=== PATIENT | female | born 1960 | race African-American/Black ===

== ENCOUNTER 2016-11-22 10:08 | Inpatient (IN) | payer OTHER ==
[~2016-11-22] VITALS: Ht 175.3 cm; Wt 117.9 kg
[2016-11-22 09:00] VITALS: Ht 175.3 cm; Wt 117.9 kg
[2016-11-22 10:00] VITALS: BP 125/65; PULSE 88; RESP 18
[2016-11-22] MEDS ORDERED: HYDROmorphONE 1 MG/ML SYG IV PRN ×2 (10:49→11:00)
[2016-11-22] MEDS ORDERED: BISACODYL 10 MG SUPP PR PRN (11:00)
[2016-11-22] MEDS ORDERED: DIPHENHYDRAMINE 25 MG CAP PO PRN (11:00)
[2016-11-22] MEDS: ASPIRIN 325 MG TAB PO SCH ×2 (11:00→19:54)
[2016-11-22] MEDS ORDERED: ACETAMINOPHEN 325 MG TAB PO PRN (11:00)
[2016-11-22] MEDS ORDERED: ONDANSETRON 4 MG INJ IV PRN (11:00)
[2016-11-22] MEDS: CELECOXIB 200 MG CAP PO SCH ×2 (11:00→19:54)
[2016-11-22] MEDS: FLUTICASONE 0.05% 16 GM NAS SPRAY NASAL SCH ×2 (11:30→19:54)
[2016-11-22] MEDS ORDERED: HYDROmorphONE 1 MG/ML SYG IM STA (11:41)
[2016-11-22] MEDS ORDERED: HYDROmorphONE 1 MG/ML SYG IV STA (11:43)
[2016-11-22] MEDS: HYDROmorphONE 1 MG/ML SYG IV PRN ×3 (15:24→21:17)
--- NOTE | 2016-11-22 17:21 | HP ---
DATE OF ADMISSION: 11/22/2016 PHYSICAL MEDICINE AND REHABILITATION HISTORY AND PHYSICAL/PHYSICIAN POST ADMISSION ASSESSMENT DATE OF VISIT: 11/22/2016. REHABILITATION IMPAIRMENT GROUP: Status post left unilateral knee replacement. CHIEF COMPLAINT: Impaired mobility, left knee and left ankle pain. HISTORY OF PRESENT ILLNESS: This is a 55-year-old obese female with a past medical history significant for a work related injury on her left knee in November 2005 as well as left knee osteoarthritis with left knee pain who failed conservative treatment and decided to proceed with elective total knee arthroplasty. The patient went to the OR on 11/16/2016 and underwent a left total knee replacement by Dr. Carey. No reported intraoperative complications. Postoperatively, she is recommended a knee immobilizer. Postoperative course complicated by anemia as well as postoperative pain. The patient did work with physical and occupational therapies, and currently the patient is requiring moderate assistance for bed mobility and transfers and gait 20 feet with a walker and moderate assistance for most of her ADLs. Due to her overall significant functional decline from baseline independent status and ongoing medical comorbidities, she was thought to benefit from acute inpatient rehabilitation. PAST MEDICAL AND PAST SURGICAL HISTORY: As stated in history of present illness. Also history of GERD and patient reports history of left ankle injury for which she had prior surgery. FAMILY HISTORY: Reports noncontributory. SOCIAL HISTORY: Denies current toxic habits. The patient lives with her family in an apartment. Reports 19 stairs to enter. The patient reports she has other options of where she may stay on discharge. She reports previously being independent with all functional mobility and self-care ADLs. Used a cane for ambulation. MEDICATIONS ON ADMISSION: 1. Milk of magnesia as needed. 2. Ambien as needed. 3. Toradol 30 mg IV q.6 hours as needed. 4. Dilaudid 1 mg IV q.3 hours p.r.n. 5. Flonase twice daily. 6. Tylenol as needed. 7. Aspirin 325 mg oral twice daily. 8. Dulcolax suppository as needed. 9. Celebrex 200 mg oral twice daily. 10. Benadryl as needed. 11. Zofran as needed. ALLERGIES: 1. AMOXICILLIN. 2. CLINDAMYCIN. 3. ERYTHROMYCIN BASE. 4. HYDROCODONE. THE PATIENT IS UNSURE OF WHAT THE EXACT ALLERGY IS BUT DOES REPORT WITH ONE OF THE MEDICATIONS SWELLING INCLUDING THROAT SWELLING. LABORATORIES AND IMAGING: Admission labs are pending for tomorrow. Prior labs from outside hospital reviewed in patient's chart. REVIEW OF SYSTEMS: CONSTITUTIONAL: The patient denies any fevers or chills. EYES: Denies pain or discharge. No redness. EARS, NOSE AND THROAT: Denies difficulty swallowing. No changes in hearing. RESPIRATORY: Denies shortness of breath, no cough. CARDIOVASCULAR: Denies chest pain, no palpitations. GENITOURINARY: Denies dysuria. No hematuria. GASTROINTESTINAL: Denies abdominal pain, no nausea, no vomiting. Reports last bowel movement earlier today. NEUROLOGICAL: Denies any new paresthesias. No new focal weakness. MUSCULOSKELETAL: Reports moderate to severe pain currently in the left knee as well as in the left ankle. SKIN: Reports some itching around the left knee surgical site. PSYCHIATRIC: Denies history of anxiety or depression. REVIEW OF SYSTEMS: Otherwise negative. PHYSICAL EXAMINATION: GENERAL: The patient is a well-nourished, well-developed, obese, awake, alert, in no acute distress. HEENT: Normocephalic, atraumatic. Mucous membranes noted. Sclera anicteric. NECK: Supple, nontender. RESPIRATORY: Symmetrical air entry bilaterally. No wheezing. No accessory muscle use. CARDIOVASCULAR: Regular rate and rhythm; audible S1, S2. ABDOMEN: Soft, nontender, bowel sounds present. No masses palpated. EXTREMITIES: There is some edema in the left lower extremity mostly surrounding the left knee. No cyanosis. SKIN: The left knee surgical site appears clean and intact. No active drainage is noted. PSYCHIATRIC: Oriented x3. Affect and mood appear appropriate. MUSCULOSKELETAL AND NEUROLOGIC: Oriented x3. Speech fluent. Good plus strength overall in the bilateral upper extremities, antigravity strength in the right lower extremity as well as wiggles all toes on the left. The patient does have some pain with range of motion in the left ankle with tenderness to palpation throughout the medial side of her ankle, no skin changes. Active range of motion in the upper extremities otherwise within functional limits. Sensation reports intact to light touch. IMPRESSION: 1. Status post left total knee replacement for left knee osteoarthritis and work related injury with knee pain failing conservative treatment. 2. Impaired mobility, gait and balance. 3. Impaired self-care activities of daily living. 4. Acute postoperative pain. 5. Anemia. 6. Left ankle pain with history of prior left ankle injury requiring surgery. 7. Obesity 8. GERD PLAN: 1. The patient will be admitted for inpatient comprehensive interdisciplinary rehabilitation to address impairments and medical conditions listed above while assessing equipment needs and compensatory strategies with coordinated interdisciplinary services that will include physical and occupational therapies and close monitoring and treatment with 24-hour rehabilitation nursing. This interdisciplinary program will be performed under the direction of inspector brake lining. The patient is anticipated to be able to tolerate 3 hours daily of therapies for at least 5 of the 7 days per week. 2. Start physical therapy for bed mobility, transfers, balance training, gait training with assistive devices. 3. Begin occupational therapies for activities of daily living, functional transfers, adaptive equipment evaluation, and patient education. 4. Rehabilitation nursing to provide the patient education regarding current medications as they relate to medical illness. Monitor pain levels. Monitor bowel and bladder programs and administer such programs and reinforce those activities with therapies. 5. Dr. Boyce and associates to follow for management of medical comorbidities. 6. For management of anemia, continue to closely monitor hemoglobin and hematocrit. WIll defer further workup per internal medicine. 7. For her history of left total knee replacement, we will obtain further clarification from orthopedic surgery in regard to her knee immobilizer as current instructions are unclear and as well as get instructions regarding dressing changes. Nursing reports that dressing was loose on admission and had to be changed. 8. For left ankle pain with prior history of surgery, we will obtain x-ray of the left ankle. 9. For the acute postoperative pain, THE PATIENT HAS MULTIPLE ALLERGIES INCLUDING TO HYDROCODONE. We will closely monitor her pain levels as she mobilizes further with therapies and adjust further as needed. 10. For DVT prophylaxis she is on aspirin. REHABILITATION GOALS: Improve bed mobility, transfers, gait and self-care ADLs to at least supervision level. ANTICIPATED DISPOSITION: Home with family. ESTIMATED LENGTH OF STAY: Approximately 10 to 14 days. Her case will be discussed at the weekly interdisciplinary conference. PROGNOSIS: At the current time, this inpatient hospital rehabilitation stay is medically necessary to achieve important health and functional goals. The patient requires frequent physician visits, 24-hour rehabilitation nursing and a coordinated intensive rehabilitation program as described above to address complex medical, nursing and rehabilitation needs. The patient has a good prognosis for benefiting from this program and returning to home and community. REHABILITATION PHYSICIAN POST-ADMISSION ASSESSMENT REVIEW: I have had the opportunity to examine the patient within 24 hours of admission and have reviewed the preadmission assessment and find it consistent with my examination and evaluation of the patient. I confirm that this patient is appropriate for admission and treatment in this inpatient rehabilitation hospital, needs intense interdisciplinary rehabilitation and is expected to achieve meaningful goals within a reasonable period of time that are consistent with the planned discharge disposition as noted above. Dictated By: RAHEL TENORIO MD, RA/ALESSANDRO Conf#: [id number] DID#: [id number] MTDD
--- NOTE | 2016-11-22 17:44 | RADRPT ---
PROCEDURE: XR Left Ankle. CLINICAL INDICATION: Left ankle pain. TECHNIQUE: 2 views. Frontal and lateral. COMPARISON: None. FINDINGS: There is no fracture or dislocation. There is diffuse soft tissue swelling. Articular surfaces are intact. There is a small plantar calcaneal spur. There is no lytic or blastic lesion. There is no radiopaque foreign body. IMPRESSION: 1. Diffuse soft tissue swelling. 2. Small plantar calcaneal spur. 3. Otherwise normal images of the left ankle. RPTAT: QQ .Bryn Lew MD, MD Date Time Electronically viewed and signed by .Bryn Lew MD, MD on 11/22/2016 17:44 .R/
[2016-11-22 19:19] LABS: ADD UMIC YES; URINE BILIRUBIN (Dip) 1+ (NEGATIVE); URINE BLOOD (Dip) NEGATIVE (NEGATIVE); URINE COLOR YELLOW (YELLOW); URINE GLUCOSE (Dip) NEGATIVE (NEGATIVE); URINE KETONES (Dip) NEGATIVE (NEGATIVE); URINE LEUKOCYTE ESTERASE (Dip) 1+ (NEGATIVE); URINE NITRITE (Dip) NEGATIVE (NEGATIVE); URINE TOTAL PROTEIN (Dip) TRACE (NEGATIVE); URINE UROBILINOGEN (Dip) >8.0 E.U./dL (0.1-1.0)
[2016-11-22 19:29] LABS: BACTERIA,URINE MANY; URINE RBCS 0-2 /HPF (0)
[2016-11-22 19:30] LABS: ICTOTEST NEGATIVE (NEGATIVE)
[2016-11-22] MEDS: KETOROLAC 30 MG INJ IV PRN (19:54)
[2016-11-22 20:00] VITALS: BP 127/62; RESP 18
[2016-11-22 20:43] VITALS: BP 113/68; RESP 18
[2016-11-22] MEDS ORDERED: MAGNESIUM HYDROXIDE 30ML CUP PO PRN (21:00)
[2016-11-22] MEDS: ZOLPIDEM 5 MG TAB PO PRN (21:17)
[2016-11-23] MEDS: HYDROmorphONE 1 MG/ML SYG IV PRN ×6 (03:19→20:48)
[2016-11-23 07:05] LABS: ADD SCAN DIFF NO
[2016-11-23 07:11] LABS: BASOPHIL # 0.1 10^3/ul (0.0-0.1); BASOPHILS % 0.6 % (0.0-2.0); EOSINOPHILS # 0.5 10^3/ul (0.0-0.5); EOSINOPHILS % 5.5 % (0.0-7.0); HEMATOCRIT 27.8 % (37.0-47.0); HEMOGLOBIN 8.6 g/dl (12.0-16.0); LYMPHOCYTES # 2.1 10^3/ul (0.8-2.9); LYMPHOCYTES % 21.6 % (15.0-51.0); MEAN CORPUSCULAR HGB CONC 30.9 g/dl (32.0-37.0); MEAN PLATELET VOLUME 11.1 fl (7.4-10.4); MONOCYTE # 0.9 10^3/ul (0.3-0.9); MONOCYTES % 9.6 % (0.0-11.0); NEUTROPHIL # 5.9 10^3/ul (1.6-7.5); NEUTROPHILS % 61.6 % (39.0-77.0); PLATELET COUNT 444 10^3/UL (140-415); RED BLOOD COUNT 3.31 10^6/ul (4.20-5.40); RED CELL DISTRIBUTION WIDTH 15.3 % (11.5-14.5); WHITE BLOOD COUNT 9.6 10^3/ul (4.8-10.8)
[2016-11-23 07:31] VITALS: BP 117/73; RESP 18
[2016-11-23 07:38] LABS: ALBUMIN 3.4 g/dl (3.3-4.9); ALBUMIN/GLOBULIN RATIO 0.89; BILIRUBIN,INDIRECT 1.2 mg/dl (0-1.1); BILIRUBIN,TOTAL 1.2 mg/dl (0.2-1.3); CALCIUM 8.9 mg/dl (8.4-10.2); CREATININE 0.75 mg/dl (0.44-1.00); POTASSIUM 5.1 mmol/L (3.5-5.1); TOTAL PROTEIN 7.2 g/dl (6.1-8.1)
[2016-11-23] MEDS: ASPIRIN 325 MG TAB PO SCH ×2 (09:12→20:45)
[2016-11-23] MEDS: FLUTICASONE 0.05% 16 GM NAS SPRAY NASAL SCH ×2 (09:12→21:01)
[2016-11-23] MEDS: CELECOXIB 200 MG CAP PO SCH ×2 (09:12→20:45)
--- NOTE | 2016-11-23 10:53 | PN ---
Date/Time of Note Date/Time of Note DATE: 11/23/16 TIME: 10:41 Assessment/Plan VTE Prophylaxis VTE Prophylaxis Intervention: other (ASA) Lines/Catheters IV Catheter Type (from Nrsg): Saline Lock Assessment/Plan Assessment/Plan 1. Status post left total knee replacement with history of left knee osteoarthritis and work related injury, with impaired mobility/gait/ADLs. Continue PT/OT. Nursing spoke with surgeon and reports was given orders to not remove surgical dressing till follow up with the surgeon and instructed to have knee immobilizer on while in bed, and off while working with therapies and ambulating. Currently min assist for lower body dressing and toileting. 2. Acute postoperative pain. Pain not optimally controlled, pain regimen adjusted. Continue to closely monitor. 3. Anemia. Continue to monitor hemoglobin/hematocrit. Internal medicine medically managing. 4. Elevated LFTs. Monitor trend. Internal medicine following. 5. Obesity. 6. Left ankle pain with history of prior left ankle injury and left ankle surgery. XR left ankle showed no acute fracture or dislocation. Continue pain regimen. Subjective 24 Hr Interval Summary Free Text/Dictation Rehab progress note Subjective: Reports moderate pain currently in left lower extremity. ROS: Denies chest pain, no shortness of breath, no abdominal pain, no nausea, no vomiting, no chills. Exam/Review of Systems Vital Signs Vitals Vital Signs Date Time Temp Pulse Resp B/P Pulse Ox O2 Delivery O2 Flow Rate FiO2 11/23/16 07:31 98.3 97 18 117/73 95 11/22/16 10:00 Room Air Intake and Output 11/22/16 11/22/16 11/23/16 15:00 23:00 07:00 Intake Total 420 ml Balance 420 ml Exam General: Awake, alert, no acute distress CV: Regular rate, s1s2 Lungs: Clear to auscultation, no wheezing Abdomen soft, nontender, bowel sounds present Extremities: No cyanosis. LLE in knee immobilizer with dressing and MAYRA wrapping in place. Neuro: No new focal changes. Follows simple commands. Results Result Diagram: 11/23/16 0625 11/23/16 0625 Results 24 hrs Laboratory Tests Test 11/22/16 18:30 11/23/16 06:25 Urine Color YELLOW Urine Clarity CLOUDY Urine pH 6.0 Urine Specific [place] 1.025 Urine Ketones NEGATIVE Urine Nitrite NEGATIVE Urine Bilirubin 1+ H Urine Ictotest NEGATIVE Urine Urobilinogen >8.0 E.U./dL H Urine Leukocyte Esterase 1+ H Urine Microscopic RBC 0-2 Urine Microscopic WBC 5-10 Urine Epithelial Cells FEW Urine Amorphous Urates MANY Urine Bacteria MANY Urine Hemoglobin NEGATIVE Urine Glucose NEGATIVE Urine Total Protein TRACE White Blood Count 9.6 Red Blood Count 3.31 L Hemoglobin 8.6 L Hematocrit 27.8 L Mean Corpuscular Volume 84.0 Mean Corpuscular Hemoglobin 26.0 L Mean Corpuscular Hemoglobin Concent 30.9 L Red Cell Distribution Width 15.3 H Platelet Count 444 H Mean Platelet Volume 11.1 H Neutrophils % 61.6 Lymphocytes % 21.6 Monocytes % 9.6 Eosinophils % 5.5 Basophils % 0.6 Nucleated Red Blood Cells % 0.0 Neutrophils # 5.9 Lymphocytes # 2.1 Monocytes # 0.9 Eosinophils # 0.5 Basophils # 0.1 Nucleated Red Blood Cells # 0.0 Sodium Level 140 Potassium Level 5.1 Chloride Level 106 Carbon Dioxide Level 27 Anion Gap 12 Blood Urea Nitrogen 22 H Creatinine 0.75 Glucose Level 91 Calcium Level 8.9 Total Bilirubin 1.2 Direct Bilirubin 0.00 Indirect Bilirubin 1.2 H Aspartate Amino Transf (AST/SGOT) 54 H Alanine Aminotransferase (ALT/SGPT) 73 H Alkaline Phosphatase 225 H Total Protein 7.2 Albumin 3.4 Globulin 3.80 H Albumin/Globulin Ratio 0.89 Medications Medications Current Medications Acetaminophen (Tylenol Tab) 650 mg Q4H PRN PO MILD PAIN (1-5),FEVER>101; Start 11/22/16 at 11:00 Aspirin (Aspirin) 325 mg BID PO Last administered on 11/23/16 09:12; Admin Dose 325 MG; Start 11/22/16 at 11:00 Bisacodyl (Dulcolax Supp) 10 mg HS PRN [place] CONSTIPATION; Start 11/22/16 at 11:00 Celecoxib (Celebrex) 200 mg BID PO Last administered on 11/23/16 09:12; Admin Dose 200 MG; Start 11/22/16 at 11:00 Diphenhydramine HCl (Benadryl) 25 mg Q6H PRN PO ITCHINESS; Start 11/22/16 at 11: 00 Fluticasone Propionate (Flonase 0.05% Nasal) 1 SPRAY to each nostril BID NASAL Last administered on 11/23/16 09:12; Admin Dose 1 SPRAY; Start 11/22/16 at 11:30 Magnesium Hydroxide (Milk Of Mag) 30 ml HS PRN PO CONSTIPATION; Start 11/22/16 at 21:00 Ondansetron HCl (Zofran Inj) 4 mg Q4H PRN IV NAUSEA AND/OR VOMITING; Start 11/22 at 11:00 Zolpidem Tartrate (Ambien) 5 mg HS PRN PO SLEEP Last administered on 11/22/16 21:17; Admin Dose 5 MG; Start 11/22/16 at 21:00 Hydromorphone HCl (Dilaudid) 1 mg Q3H PRN IV BREAKTHROUGH PAIN Last administered on 11/23/16 09:46; Admin Dose 1 MG; Start 11/22/16 at 12:00 Ketorolac Tromethamine (Toradol) 30 mg Q6H PRN IV PAIN Last administered on 11/22 19:54; Admin Dose 30 MG; Start 11/22/16 at 14:30; Stop 11/25/16 at 14:29 Hydromorphone HCl (Dilaudid) 4 mg Q6H PRN PO PAIN; Start 11/23/16 at 11:00; Status RAHEL SIMMS Nov 23, 2016 10:53
--- NOTE | 2016-11-23 11:57 | PN ---
Date/Time of Note Date/Time of Note DATE: 11/23/16 TIME: 11:53 Assessment/Plan VTE Prophylaxis VTE Prophylaxis Intervention: other Lines/Catheters IV Catheter Type (from Nrsg): Saline Lock Assessment/Plan Assessment/Plan 1. Status post left total knee replacement for left knee osteoarthritis and work related injury. will conitnue with rehab, dvt prophylaxis, pain management (will add remeron) 2. Impaired mobility, gait and balance. 3. Impaired self-care activities of daily living. 4. Acute postoperative pain. 5. Anemia. will check iron panel 6. Left ankle pain with history of prior left ankle surgery. 7. elevated transaminases: will repeat in am Subjective 24 Hr Interval Summary Free Text/Dictation all noted complaining of pain surgical site is clean and dry no nausea, vomiting, rash, hematuria REVIEW OF SYSTEMS: CONSTITUTIONAL: The patient denies any fevers or chills. EYES: Denies pain or discharge. No redness. EARS, NOSE AND THROAT: Denies difficulty swallowing. No changes in hearing. RESPIRATORY: Denies shortness of breath, no cough. CARDIOVASCULAR: Denies chest pain, no palpitations. GENITOURINARY: Denies dysuria. No hematuria. GASTROINTESTINAL: Denies abdominal pain, no nausea, no vomiting. Reports last bowel movement earlier today. NEUROLOGICAL: Denies any new paresthesias. No new focal weakness. MUSCULOSKELETAL: Reports moderate to severe pain currently in the left knee as well as in the left ankle. SKIN: Reports some itching around the left knee surgical site. PSYCHIATRIC: Denies history of anxiety or depression. REVIEW OF SYSTEMS: Otherwise negative. PHYSICAL EXAMINATION: GENERAL: The patient is a well-nourished, well-developed, obese, awake, alert, in no acute distress. HEENT: Normocephalic, atraumatic. Mucous membranes noted. NECK: Supple, nontender. RESPIRATORY: Symmetrical air entry bilaterally. No wheezing. CARDIOVASCULAR: Regular rate and rhythm; audible S1, S2. ABDOMEN: Soft, nontender, bowel sounds present. EXTREMITIES: There is some edema in the left lower extremity mostly surrounding the left knee. No cyanosis. SKIN: The left knee surgical site appears clean and intact. No active drainage is noted. PSYCHIATRIC: Affect and mood appear appropriate. Exam/Review of Systems Vital Signs Vitals Vital Signs Date Time Temp Pulse Resp B/P Pulse Ox O2 Delivery O2 Flow Rate FiO2 4/7/17 07:31 98.3 97 18 117/73 95 11/22/16 10:00 Room Air Intake and Output 11/22/16 11/22/16 11/23/16 15:00 23:00 07:00 Intake Total 420 ml Balance 420 ml Results Result Diagram: 11/23/16 0625 11/23/16 0625 Results 24 hrs Laboratory Tests Test 11/22/16 18:30 11/23/16 06:25 Urine Color YELLOW Urine Clarity CLOUDY Urine pH 6.0 Urine Specific [place] 1.025 Urine Ketones NEGATIVE Urine Nitrite NEGATIVE Urine Bilirubin 1+ H Urine Ictotest NEGATIVE Urine Urobilinogen >8.0 E.U./dL H Urine Leukocyte Esterase 1+ H Urine Microscopic RBC 0-2 Urine Microscopic WBC 5-10 Urine Epithelial Cells FEW Urine Amorphous Urates MANY Urine Bacteria MANY Urine Hemoglobin NEGATIVE Urine Glucose NEGATIVE Urine Total Protein TRACE White Blood Count 9.6 Red Blood Count 3.31 L Hemoglobin 8.6 L Hematocrit 27.8 L Mean Corpuscular Volume 84.0 Mean Corpuscular Hemoglobin 26.0 L Mean Corpuscular Hemoglobin Concent 30.9 L Red Cell Distribution Width 15.3 H Platelet Count 444 H Mean Platelet Volume 11.1 H Neutrophils % 61.6 Lymphocytes % 21.6 Monocytes % 9.6 Eosinophils % 5.5 Basophils % 0.6 Nucleated Red Blood Cells % 0.0 Neutrophils # 5.9 Lymphocytes # 2.1 Monocytes # 0.9 Eosinophils # 0.5 Basophils # 0.1 Nucleated Red Blood Cells # 0.0 Sodium Level 140 Potassium Level 5.1 Chloride Level 106 Carbon Dioxide Level 27 Anion Gap 12 Blood Urea Nitrogen 22 H Creatinine 0.75 Glucose Level 91 Calcium Level 8.9 Total Bilirubin 1.2 Direct Bilirubin 0.00 Indirect Bilirubin 1.2 H Aspartate Amino Transf (AST/SGOT) 54 H Alanine Aminotransferase (ALT/SGPT) 73 H Alkaline Phosphatase 225 H Total Protein 7.2 Albumin 3.4 Globulin 3.80 H Albumin/Globulin Ratio 0.89 Medications Medications Current Medications Acetaminophen (Tylenol Tab) 650 mg Q4H PRN PO MILD PAIN (1-5),FEVER>101; Start 11/22/16 at 11:00 Aspirin (Aspirin) 325 mg BID PO Last administered on 11/23/16t 09:12; Admin Dose 325 MG; Start 11/22/16 at 11:00 Bisacodyl (Dulcolax Supp) 10 mg HS PRN [place] CONSTIPATION; Start 11/22/16 at 11:00 Celecoxib (Celebrex) 200 mg BID PO Last administered on 11/23/16 09:12; Admin Dose 200 MG; Start 11/22/16 at 11:00 Diphenhydramine HCl (Benadryl) 25 mg Q6H PRN PO ITCHINESS; Start 11/22/16 at 11: 00 Fluticasone Propionate (Flonase 0.05% Nasal) 1 SPRAY to each nostril BID NASAL Last administered on 11/23/16 09:12; Admin Dose 1 SPRAY; Start 11/22/16 at 11:30 Magnesium Hydroxide (Milk Of Mag) 30 ml HS PRN PO CONSTIPATION; Start 11/22/16 at 21:00 Ondansetron HCl (Zofran Inj) 4 mg Q4H PRN IV NAUSEA AND/OR VOMITING; Start 11/22 at 11:00 Zolpidem Tartrate (Ambien) 5 mg HS PRN PO SLEEP Last administered on 11/22/16 21:17; Admin Dose 5 MG; Start 11/22/16 at 21:00 Hydromorphone HCl (Dilaudid) 1 mg Q3H PRN IV BREAKTHROUGH PAIN Last administered on 11/23/16 09:46; Admin Dose 1 MG; Start 11/22/16 at 12:00 Ketorolac Tromethamine (Toradol) 30 mg Q6H PRN IV PAIN Last administered on 11/22 19:54; Admin Dose 30 MG; Start 11/22/16 at 14:30; Stop 11/25/16 at 14:29 Hydromorphone HCl (Dilaudid) 4 mg Q6H PRN PO PAIN; Start 11/23/16 at 11:00 LEANNE JESSICA DO Nov 23, 2016 11:57
[2016-11-23] MEDS: KETOROLAC 30 MG INJ IV PRN (12:13)
[2016-11-23] MEDS: HYDROmorphONE 4 MG TAB PO PRN (18:17)
[2016-11-23] MEDS: ZOLPIDEM 5 MG TAB PO PRN (20:48)
[2016-11-23] MEDS: MIRTAZAPINE 15 MG TAB GTB SCH (21:01)
[2016-11-24] MEDS: HYDROmorphONE 1 MG/ML SYG IV PRN ×2 (06:17→20:25)
[2016-11-24 07:36] LABS: ADD SCAN DIFF NO
[2016-11-24 07:46] LABS: BASOPHIL # 0.1 10^3/ul (0.0-0.1); BASOPHILS % 0.7 % (0.0-2.0); EOSINOPHILS # 0.6 10^3/ul (0.0-0.5); EOSINOPHILS % 7.3 % (0.0-7.0); HEMATOCRIT 25.8 % (37.0-47.0); HEMOGLOBIN 8.4 g/dl (12.0-16.0); LYMPHOCYTES # 1.8 10^3/ul (0.8-2.9); LYMPHOCYTES % 21.6 % (15.0-51.0); MEAN CORPUSCULAR HEMOGLOBIN 28.1 pg (29.0-33.0); MEAN CORPUSCULAR HGB CONC 32.6 g/dl (32.0-37.0); MEAN CORPUSCULAR VOLUME 86.3 fl (82.0-101.0); MEAN PLATELET VOLUME 11.5 fl (7.4-10.4); MONOCYTE # 0.8 10^3/ul (0.3-0.9); NEUTROPHIL # 4.8 10^3/ul (1.6-7.5); NEUTROPHILS % 59.4 % (39.0-77.0); PLATELET COUNT 472 10^3/UL (140-415); RED BLOOD COUNT 2.99 10^6/ul (4.20-5.40); RED CELL DISTRIBUTION WIDTH 15.9 % (11.5-14.5); WHITE BLOOD COUNT 8.1 10^3/ul (4.8-10.8)
[2016-11-24 07:55] LABS: BILIRUBIN,INDIRECT 1.1 mg/dl (0-1.1); BILIRUBIN,TOTAL 1.1 mg/dl (0.2-1.3); TOTAL PROTEIN 6.5 g/dl (6.1-8.1)
[2016-11-24 07:57] LABS: IRON 59 ug/dl (35-150)
[2016-11-24 08:00] VITALS: BP 164/78; PULSE 98; RESP 18
[2016-11-24 08:00] LABS: CALCIUM 8.5 mg/dl (8.4-10.2); CREATININE 0.67 mg/dl (0.44-1.00); PHOSPHORUS 4.1 mg/dl (2.5-4.9); POTASSIUM 4.4 mmol/L (3.5-5.1)
[2016-11-24 08:06] LABS: TOTAL IRON BINDING CAPACITY 293 ug/dl (241-421)
[2016-11-24] MEDS: ASPIRIN 325 MG TAB PO SCH ×2 (08:19→20:25)
[2016-11-24] MEDS: FLUTICASONE 0.05% 16 GM NAS SPRAY NASAL SCH ×2 (08:19→20:23)
[2016-11-24] MEDS: CELECOXIB 200 MG CAP PO SCH ×2 (08:19→20:25)
[2016-11-24] MEDS: HYDROmorphONE 4 MG TAB PO PRN ×2 (08:27→15:03)
--- NOTE | 2016-11-24 09:02 | CONS ---
Date/Time of Note Date/Time of Note DATE: 11/24/16 TIME: 08:59 Consult Date/Type/Reason Admit Date/Time Nov 22, 2016 at 10:08 Initial Consult Date Subjective Above noted. poc reviewed with dr. ugarte complaining of pain surgical site is clean and dry no nausea, vomiting, rash, hematuria REVIEW OF SYSTEMS: CONSTITUTIONAL: The patient denies any fevers or chills. EYES: Denies pain or discharge. No redness. EARS, NOSE AND THROAT: Denies difficulty swallowing. No changes in hearing. RESPIRATORY: Denies shortness of breath, no cough. CARDIOVASCULAR: Denies chest pain, no palpitations. GENITOURINARY: Denies dysuria. No hematuria. GASTROINTESTINAL: Denies abdominal pain, no nausea, no vomiting. Reports last bowel movement earlier today. NEUROLOGICAL: Denies any new paresthesias. No new focal weakness. MUSCULOSKELETAL: Reports moderate to severe pain currently in the left knee as well as in the left ankle. SKIN: Reports some itching around the left knee surgical site. PSYCHIATRIC: Denies history of anxiety or depression. REVIEW OF SYSTEMS: Otherwise negative. PHYSICAL EXAMINATION: GENERAL: The patient is a well-nourished, well-developed, obese, awake, alert, in no acute distress. HEENT: Normocephalic, atraumatic. Mucous membranes noted. NECK: Supple, nontender. RESPIRATORY: Symmetrical air entry bilaterally. No wheezing. CARDIOVASCULAR: Regular rate and rhythm; audible S1, S2. ABDOMEN: Soft, nontender, bowel sounds present. EXTREMITIES: There is some edema in the left lower extremity mostly surrounding the left knee. No cyanosis. SKIN: The left knee surgical site appears clean and intact. No active drainage is noted. PSYCHIATRIC: Affect and mood appear appropriate. Objective Vital Signs Date Time Temp Pulse Resp B/P Pulse Ox O2 Delivery O2 Flow Rate FiO2 11/23/16 07:31 98.3 97 18 117/73 95 11/22/16 10:00 Room Air Intake and Output 11/23/16 11/23/16 11/24/16 15:00 23:00 07:00 Intake Total 1200 ml 600 ml 450 ml Output Total 400 ml 300 ml Balance 800 ml 600 ml 150 ml Results/Medications Result Diagram: 11/24/16 0555 11/24/16 0555 Results 24 hrs Laboratory Tests Test 11/24/16 05:55 11/24/16 06:55 White Blood Count 8.1 Red Blood Count 2.99 L Hemoglobin 8.4 L Hematocrit 25.8 L Mean Corpuscular Volume 86.3 Mean Corpuscular Hemoglobin 28.1 L Mean Corpuscular Hemoglobin Concent 32.6 Red Cell Distribution Width 15.9 H Platelet Count 472 H Mean Platelet Volume 11.5 H Neutrophils % 59.4 Lymphocytes % 21.6 Monocytes % 10.0 Eosinophils % 7.3 H Basophils % 0.7 Nucleated Red Blood Cells % 0.0 Neutrophils # 4.8 Lymphocytes # 1.8 Monocytes # 0.8 Eosinophils # 0.6 H Basophils # 0.1 Nucleated Red Blood Cells # 0.0 Sodium Level 139 Potassium Level 4.4 Chloride Level 108 Carbon Dioxide Level 27 Anion Gap 8 Blood Urea Nitrogen 21 H Creatinine 0.67 Glucose Level 91 Calcium Level 8.5 Phosphorus Level 4.1 Magnesium Level 2.0 Total Bilirubin 1.1 Direct Bilirubin 0.00 Indirect Bilirubin 1.1 Aspartate Amino Transf (AST/SGOT) 55 H Alanine Aminotransferase (ALT/SGPT) 64 Alkaline Phosphatase 199 H Total Protein 6.5 Albumin 3.0 L Iron Level 59 Total Iron Binding Capacity 293 Percent Iron Saturation 20 L Medications Current Medications Acetaminophen (Tylenol Tab) 650 mg Q4H PRN PO MILD PAIN (1-5),FEVER>101; Start 11/22/16 at 11:00 Aspirin (Aspirin) 325 mg BID PO Last administered on 11/24/16 08:19; Admin Dose 325 MG; Start 11/22/16 at 11:00 Bisacodyl (Dulcolax Supp) 10 mg HS PRN [place] CONSTIPATION; Start 11/22/16 at 11:00 Celecoxib (Celebrex) 200 mg BID PO Last administered on 11/24/16 08:19; Admin Dose 200 MG; Start 11/22/16 at 11:00 Diphenhydramine HCl (Benadryl) 25 mg Q6H PRN PO ITCHINESS; Start 11/22/16 at 11: 00 Fluticasone Propionate (Flonase 0.05% Nasal) 1 SPRAY to each nostril BID NASAL Last administered on 11/24/16 08:19; Admin Dose 1 SPRAY; Start 11/22/16 at 11:30 Magnesium Hydroxide (Milk Of Mag) 30 ml HS PRN PO CONSTIPATION; Start 11/22/16 at 21:00 Ondansetron HCl (Zofran Inj) 4 mg Q4H PRN IV NAUSEA AND/OR VOMITING; Start 11/22 at 11:00 Zolpidem Tartrate (Ambien) 5 mg HS PRN PO SLEEP Last administered on 11/23/16 20:48; Admin Dose 5 MG; Start 11/22/16 at 21:00 Hydromorphone HCl (Dilaudid) 1 mg Q3H PRN IV BREAKTHROUGH PAIN Last administered on 11/24/16 06:17; Admin Dose 1 MG; Start 11/22/16 at 12:00 Ketorolac Tromethamine (Toradol) 30 mg Q6H PRN IV PAIN Last administered on 11/23 12:13; Admin Dose 30 MG; Start 11/22/16 at 14:30; Stop 11/25/16 at 14:29 Hydromorphone HCl (Dilaudid) 4 mg Q6H PRN PO PAIN Last administered on 08:27; Admin Dose 4 MG; Start 11/23/16 at 11:00 Mirtazapine (Remeron) 15 mg HS GTB Last administered on 11/23/16 21:01; Admin Dose 15 MG; Start 11/23/16 at 21:00 Assessment/Plan Chief Complaint/Hosp Course 1. Status post left total knee replacement for left knee osteoarthritis and work related injury. will continue with rehab, dvt prophylaxis, pain management (will add remeron) 2. Impaired mobility, gait and balance. 3. Impaired self-care activities of daily living. 4. Acute postoperative pain. 5. Anemia. mild cristiana. cont iron. 6. Left ankle pain with history of prior left ankle surgery. 7. elevated transaminases: improved a bit. repeat in am. Problems: ANNEL CORDOVA MD Nov 24, 2016 09:02
--- NOTE | 2016-11-24 10:15 | PN ---
Date/Time of Note Date/Time of Note DATE: 11/24/16 TIME: 10:12 Assessment/Plan VTE Prophylaxis VTE Prophylaxis Intervention: other (ASA) Lines/Catheters IV Catheter Type (from Nrsg): Saline Lock Assessment/Plan Assessment/Plan 1. Status post left total knee replacement after failing conservative treatment for left knee osteoarthritis with work related injury, with impaired mobility/gait/ADLs. Continue PT/OT. Min assist for transfers and gait 100ft with FWW. 2. Acute postoperative pain. Pain improving with starting of PO dilaudid, continue to closely monitor. Adjust further as needed. 3. Anemia. Continue to monitor hemoglobin/hematocrit, fairly stable on labs today. 4. Elevated LFTs. Improving on labs today, internal medicine managing. 5. Obesity. 6. History of remote left ankle injury s/p surgery, with left ankle pain. Continue pain control. Subjective 24 Hr Interval Summary Free Text/Dictation Rehab progress note Subjective: Reports LLE pain improved today since adjusting medications yesterday. Currently 5/10 pain while working with therapy. ROS: Denies chest pain, no shortness of breath, no abdominal pain, no nausea or vomiting, no chills, no dysuria, no urinary frequency. Reports moving bowels. Exam/Review of Systems Vital Signs Vitals Vital Signs Date Time Temp Pulse Resp B/P Pulse Ox O2 Delivery O2 Flow Rate FiO2 11/23/16 07:31 98.3 97 18 117/73 95 11/22/16 10:00 Room Air Intake and Output 11/23/16 11/23/16 11/24/16 15:00 23:00 07:00 Intake Total 1200 ml 600 ml 450 ml Output Total 400 ml 300 ml Balance 800 ml 600 ml 150 ml Exam General: Awake, alert, no acute distress CV: Regular rate, s1s2 audible Lungs: Respirations are nonlabored, no wheezing or crackles Abdomen obese, soft, nontender Extremities: No cyanosis. LLE knee surgical site with dressing in place, clean and dry. Neuro: Antigravity strength BUE/RLE, wiggles toes on the left. No new sensory changes. Results Result Diagram: 11/24/16 0555 11/24/16 0555 Results 24 hrs Laboratory Tests Test 11/24/16 05:55 11/24/16 06:55 White Blood Count 8.1 Red Blood Count 2.99 L Hemoglobin 8.4 L Hematocrit 25.8 L Mean Corpuscular Volume 86.3 Mean Corpuscular Hemoglobin 28.1 L Mean Corpuscular Hemoglobin Concent 32.6 Red Cell Distribution Width 15.9 H Platelet Count 472 H Mean Platelet Volume 11.5 H Neutrophils % 59.4 Lymphocytes % 21.6 Monocytes % 10.0 Eosinophils % 7.3 H Basophils % 0.7 Nucleated Red Blood Cells % 0.0 Neutrophils # 4.8 Lymphocytes # 1.8 Monocytes # 0.8 Eosinophils # 0.6 H Basophils # 0.1 Nucleated Red Blood Cells # 0.0 Sodium Level 139 Potassium Level 4.4 Chloride Level 108 Carbon Dioxide Level 27 Anion Gap 8 Blood Urea Nitrogen 21 H Creatinine 0.67 Glucose Level 91 Calcium Level 8.5 Phosphorus Level 4.1 Magnesium Level 2.0 Total Bilirubin 1.1 Direct Bilirubin 0.00 Indirect Bilirubin 1.1 Aspartate Amino Transf (AST/SGOT) 55 H Alanine Aminotransferase (ALT/SGPT) 64 Alkaline Phosphatase 199 H Total Protein 6.5 Albumin 3.0 L Iron Level 59 Total Iron Binding Capacity 293 Percent Iron Saturation 20 L Medications Medications Current Medications Acetaminophen (Tylenol Tab) 650 mg Q4H PRN PO MILD PAIN (1-5),FEVER>101; Start 11/22/16 at 11:00 Aspirin (Aspirin) 325 mg BID PO Last administered on 11/24/16 08:19; Admin Dose 325 MG; Start 11/22/16 at 11:00 Bisacodyl (Dulcolax Supp) 10 mg HS PRN [place] CONSTIPATION; Start 11/22/16 at 11:00 Celecoxib (Celebrex) 200 mg BID PO Last administered on 11/24/16 08:19; Admin Dose 200 MG; Start 11/22/16 at 11:00 Diphenhydramine HCl (Benadryl) 25 mg Q6H PRN PO ITCHINESS; Start 11/22/16 at 11: 00 Fluticasone Propionate (Flonase 0.05% Nasal) 1 SPRAY to each nostril BID NASAL Last administered on 11/24/16 08:19; Admin Dose 1 SPRAY; Start 11/22/16 at 11:30 Magnesium Hydroxide (Milk Of Mag) 30 ml HS PRN PO CONSTIPATION; Start 11/22/16 at 21:00 Ondansetron HCl (Zofran Inj) 4 mg Q4H PRN IV NAUSEA AND/OR VOMITING; Start 11/22 at 11:00 Zolpidem Tartrate (Ambien) 5 mg HS PRN PO SLEEP Last administered on 11/23/16 20:48; Admin Dose 5 MG; Start 11/22/16 at 21:00 Hydromorphone HCl (Dilaudid) 1 mg Q3H PRN IV BREAKTHROUGH PAIN Last administered on 11/24/16 06:17; Admin Dose 1 MG; Start 11/22/16 at 12:00 Ketorolac Tromethamine (Toradol) 30 mg Q6H PRN IV PAIN Last administered on 11/23 12:13; Admin Dose 30 MG; Start 11/22/16 at 14:30; Stop 11/25/16 at 14:29 Hydromorphone HCl (Dilaudid) 4 mg Q6H PRN PO PAIN Last administered on 08:27; Admin Dose 4 MG; Start 11/23/16 at 11:00 Mirtazapine (Remeron) 15 mg HS GTB Last administered on 11/23/16 21:01; Admin Dose 15 MG; Start 11/23/16 at 21:00 RAHEL TENORIO Nov 24, 2016 10:15
[2016-11-24 17:00] VITALS: BP 136/75; PULSE 90; RESP 18
[2016-11-24 20:00] VITALS: BP 118/74; PULSE 92; RESP 18
[2016-11-24] MEDS: MIRTAZAPINE 15 MG TAB GTB SCH (20:25)
[2016-11-24] MEDS: ZOLPIDEM 5 MG TAB PO PRN (21:06)
[2016-11-25] MEDS: HYDROmorphONE 4 MG TAB PO PRN ×4 (00:43→22:28)
[2016-11-25] MEDS: HYDROmorphONE 1 MG/ML SYG IV PRN ×5 (03:59→18:38)
[2016-11-25 07:30] VITALS: BP 124/77; RESP 18
[2016-11-25 07:40] LABS: ADD SCAN DIFF NO
[2016-11-25 07:44] LABS: BASOPHIL # 0.1 10^3/ul (0.0-0.1); BASOPHILS % 0.9 % (0.0-2.0); EOSINOPHILS # 0.6 10^3/ul (0.0-0.5); EOSINOPHILS % 7.4 % (0.0-7.0); HEMATOCRIT 26.1 % (37.0-47.0); HEMOGLOBIN 8.1 g/dl (12.0-16.0); LYMPHOCYTES # 2.5 10^3/ul (0.8-2.9); LYMPHOCYTES % 29.5 % (15.0-51.0); MEAN CORPUSCULAR HEMOGLOBIN 26.2 pg (29.0-33.0); MEAN CORPUSCULAR VOLUME 84.5 fl (82.0-101.0); MEAN PLATELET VOLUME 10.6 fl (7.4-10.4); MONOCYTE # 0.9 10^3/ul (0.3-0.9); MONOCYTES % 10.2 % (0.0-11.0); NEUTROPHIL # 4.3 10^3/ul (1.6-7.5); NEUTROPHILS % 50.8 % (39.0-77.0); PLATELET COUNT 505 10^3/UL (140-415); RED BLOOD COUNT 3.09 10^6/ul (4.20-5.40); RED CELL DISTRIBUTION WIDTH 15.6 % (11.5-14.5); WHITE BLOOD COUNT 8.5 10^3/ul (4.8-10.8)
[2016-11-25 07:56] LABS: ALBUMIN 3.1 g/dl (3.3-4.9); ALBUMIN/GLOBULIN RATIO 0.88; BILIRUBIN,INDIRECT 0.7 mg/dl (0-1.1); BILIRUBIN,TOTAL 0.7 mg/dl (0.2-1.3); CALCIUM 8.4 mg/dl (8.4-10.2); CREATININE 0.7 mg/dl (0.44-1.00); POTASSIUM 4.4 mmol/L (3.5-5.1); TOTAL PROTEIN 6.6 g/dl (6.1-8.1)
[2016-11-25] MEDS: FLUTICASONE 0.05% 16 GM NAS SPRAY NASAL SCH ×2 (09:00→20:31)
[2016-11-25] MEDS: ASPIRIN 325 MG TAB PO SCH ×2 (09:11→20:31)
[2016-11-25] MEDS: CELECOXIB 200 MG CAP PO SCH ×2 (09:11→20:31)
--- NOTE | 2016-11-25 09:11 | CONS ---
Date/Time of Note Date/Time of Note DATE: 11/25/16 TIME: 09:10 Consult Date/Type/Reason Admit Date/Time Nov 22, 2016 at 10:08 Subjective Above noted. poc reviewed with dr. ugarte complaining of pain surgical site is clean and dry no nausea, vomiting, rash, hematuria REVIEW OF SYSTEMS: CONSTITUTIONAL: The patient denies any fevers or chills. EYES: Denies pain or discharge. No redness. EARS, NOSE AND THROAT: Denies difficulty swallowing. No changes in hearing. RESPIRATORY: Denies shortness of breath, no cough. CARDIOVASCULAR: Denies chest pain, no palpitations. GENITOURINARY: Denies dysuria. No hematuria. GASTROINTESTINAL: Denies abdominal pain, no nausea, no vomiting. Reports last bowel movement earlier today. NEUROLOGICAL: Denies any new paresthesias. No new focal weakness. MUSCULOSKELETAL: Reports moderate to severe pain currently in the left knee as well as in the left ankle. SKIN: Reports some itching around the left knee surgical site. PSYCHIATRIC: Denies history of anxiety or depression. REVIEW OF SYSTEMS: Otherwise negative. PHYSICAL EXAMINATION: GENERAL: The patient is a well-nourished, well-developed, obese, awake, alert, in no acute distress. HEENT: Normocephalic, atraumatic. Mucous membranes noted. NECK: Supple, nontender. RESPIRATORY: Symmetrical air entry bilaterally. No wheezing. CARDIOVASCULAR: Regular rate and rhythm; audible S1, S2. ABDOMEN: Soft, nontender, bowel sounds present. EXTREMITIES: There is some edema in the left lower extremity mostly surrounding the left knee. No cyanosis. SKIN: The left knee surgical site appears clean and intact. No active drainage is noted. PSYCHIATRIC: Affect and mood appear appropriate. Objective Vital Signs Date Time Temp Pulse Resp B/P Pulse Ox O2 Delivery O2 Flow Rate FiO2 11/24/16 20:00 98.5 92 18 118/74 Room Air 11/23/16 07:31 95 Intake and Output 11/24/16 11/24/16 11/25/16 15:00 23:00 07:00 Intake Total 1050 ml 620 ml Output Total 800 ml 600 ml Balance 250 ml 20 ml Results/Medications Result Diagram: 11/25/16 0710 11/25/16 0710 Results 24 hrs Laboratory Tests Test 11/25/16 07:10 White Blood Count 8.5 Red Blood Count 3.09 L Hemoglobin 8.1 L Hematocrit 26.1 L Mean Corpuscular Volume 84.5 Mean Corpuscular Hemoglobin 26.2 L Mean Corpuscular Hemoglobin Concent 31.0 L Red Cell Distribution Width 15.6 H Platelet Count 505 H Mean Platelet Volume 10.6 H Neutrophils % 50.8 Lymphocytes % 29.5 Monocytes % 10.2 Eosinophils % 7.4 H Basophils % 0.9 Nucleated Red Blood Cells % 0.0 Neutrophils # 4.3 Lymphocytes # 2.5 Monocytes # 0.9 Eosinophils # 0.6 H Basophils # 0.1 Nucleated Red Blood Cells # 0.0 Sodium Level 137 Potassium Level 4.4 Chloride Level 108 Carbon Dioxide Level 28 Anion Gap 5 L Blood Urea Nitrogen 15 Creatinine 0.70 Glucose Level 95 Calcium Level 8.4 Total Bilirubin 0.7 Direct Bilirubin 0.00 Indirect Bilirubin 0.7 Aspartate Amino Transf (AST/SGOT) 45 Alanine Aminotransferase (ALT/SGPT) 62 Alkaline Phosphatase 191 H Total Protein 6.6 Albumin 3.1 L Globulin 3.50 H Albumin/Globulin Ratio 0.88 Medications Current Medications Acetaminophen (Tylenol Tab) 650 mg Q4H PRN PO MILD PAIN (1-5),FEVER>101; Start 11/22/16 at 11:00 Aspirin (Aspirin) 325 mg BID PO Last administered on 11/24/16 20:25; Admin Dose 325 MG; Start 11/22/16 at 11:00 Bisacodyl (Dulcolax Supp) 10 mg HS PRN [place] CONSTIPATION; Start 11/22/16 at 11:00 Celecoxib (Celebrex) 200 mg BID PO Last administered on 11/24/16 20:25; Admin Dose 200 MG; Start 11/22/16 at 11:00 Diphenhydramine HCl (Benadryl) 25 mg Q6H PRN PO ITCHINESS; Start 11/22/16 at 11: 00 Fluticasone Propionate (Flonase 0.05% Nasal) 1 SPRAY to each nostril BID NASAL Last administered on 11/24/16 20:23; Admin Dose 1 SPRAY; Start 11/22/16 at 11:30 Magnesium Hydroxide (Milk Of Mag) 30 ml HS PRN PO CONSTIPATION; Start 11/22/16 at 21:00 Ondansetron HCl (Zofran Inj) 4 mg Q4H PRN IV NAUSEA AND/OR VOMITING; Start 11/22 at 11:00 Zolpidem Tartrate (Ambien) 5 mg HS PRN PO SLEEP Last administered on 11/24/16 21:06; Admin Dose 5 MG; Start 11/22/16 at 21:00 Hydromorphone HCl (Dilaudid) 1 mg Q3H PRN IV BREAKTHROUGH PAIN Last administered on 11/25/16 07:35; Admin Dose 1 MG; Start 11/22/16 at 12:00 Hydromorphone HCl (Dilaudid) 4 mg Q6H PRN PO PAIN Last administered on 00:43; Admin Dose 4 MG; Start 11/23/16 at 11:00 Mirtazapine (Remeron) 15 mg HS GTB Last administered on 11/24/16 20:25; Admin Dose 15 MG; Start 11/23/16 at 21:00 Assessment/Plan Chief Complaint/Hosp Course 1. Status post left total knee replacement for left knee osteoarthritis and work related injury. will continue with rehab, dvt prophylaxis, pain management (will add remeron) 2. Impaired mobility, gait and balance. 3. Impaired self-care activities of daily living. 4. Acute postoperative pain. 5. Anemia. mild cristiana. cont iron. 6. Left ankle pain with history of prior left ankle surgery. 7. elevated transaminases: improved now. repeat in am. Problems: ANNEL CORDOVA MD Nov 25, 2016 09:11
[2016-11-25] MEDS: PANTOPRAZOLE (EC) 40 MG TAB PO SCH (14:50)
--- NOTE | 2016-11-25 14:57 | CONS ---
DATE OF ADMISSION: 11/22/2016 DATE OF CONSULTATION: 11/22/2016 HISTORY OF PRESENT ILLNESS: The patient is a 55-year-old female with past medical history of left k nee osteoarthritis which failed conservative treatment, decided to proceed with left total knee arth roplasty, went to the OR on 11/16/2016, uncomplicated hospital course. The patient does complain of pain; denies fevers, chills, nausea, vomiting, chest pain, shortness of breath; tolerating some phy sical therapy. PAST MEDICAL HISTORY: Significant for GERD, left ankle surgery. MEDICATIONS FROM ADMISSION: Include: 1. Milk of magnesia. 2. Ambien. 3. Toradol. 4. Dilaudid. 5. Flonase. 6. Tylenol. 7. Aspirin. 8. Dulcolax. 9. Celebrex. 10. Benadryl. 11. Zofran. ALLERGIES: THE PATIENT HAS ALLERGIES TO: 1. AMOXICILLIN. 2. CLINDAMYCIN. 3. ERYTHROMYCIN BASE. 4. HYDROCODONE. SOCIAL HISTORY: Does not smoke, drink, or use IV drugs. FAMILY HISTORY: History of kidney disease. REVIEW OF SYSTEMS: Fourteen-point review of systems is attempted and negative unless stated. PHYSICAL EXAMINATION: VITAL SIGNS: We see temperature of 98, blood pressure 127/62. HEENT: Head is normocephalic, atraumatic. Pupils equal, round, and reactive to light. Oropharynx shows moist mucous membranes. NECK: Supple. HEART: Regular rate and rhythm. LUNGS: Clear to auscultation. ABDOMEN: Soft, nontender, nondistended . LABORATORY EVALUATION: UA with negative RBCs, 5 to 10 WBCs. Labs were reviewed from other facility . IMPRESSION: 1. Status post left total knee replacement for left knee osteoarthritis . Continue rehabilita tion, deep venous thrombosis prophylaxis, pain management. 2. Impaired mobility, gait imbalance. Continue physical therapy. 3. Anemia, mild iron-deficiency pattern in the facility, recheck. 4. Elevated transaminases. We will repeat here. 5. Left ankle pain with history left ankle surgery. 6. Gastroesophageal reflux disease. Continue regular medications. Dictated By: ANNEL CORDOVA MD DF/NTS Conf#: [id number] DID#: [id number]
[2016-11-25 20:23] VITALS: BP 133/61; RESP 16
[2016-11-25] MEDS: MIRTAZAPINE 15 MG TAB GTB SCH (20:31)
[2016-11-25] MEDS: ZOLPIDEM 5 MG TAB PO PRN (22:28)
[2016-11-26 07:30] VITALS: BP 121/64; RESP 18
[2016-11-26] MEDS: HYDROmorphONE 4 MG TAB PO PRN ×3 (07:45→20:49)
[2016-11-26] MEDS: FLUTICASONE 0.05% 16 GM NAS SPRAY NASAL SCH ×2 (08:38→20:49)
[2016-11-26] MEDS: ASPIRIN 325 MG TAB PO SCH ×2 (08:38→20:49)
[2016-11-26] MEDS: CELECOXIB 200 MG CAP PO SCH ×2 (08:39→20:49)
--- NOTE | 2016-11-26 10:29 | PN ---
DATE: 11/26/2016 SUBJECTIVE: The patient is stable, no acute events overnight. No fevers, chills, nausea, vomiting. OBJECTIVE: VITAL SIGNS: Blood pressure is 121/64, respiration 18, pulse 84, temperature 98.3. HEENT: Head is normocephalic. NECK: Supple. HEART: Regular rate. LUNGS: Show diminished breath sounds at the base. ABDOMEN: Soft, nontender to palpation. No rebound or guarding. EXTREMITIES: Negative for clubbing, cyanosis. No edema. DERMATOLOGIC: No rashes. MUSCULOSKELETAL: No joint effusions. Please note that there is dressing over the patient's left kne e. NEUROLOGIC: No change in exam. LABORATORY DATA: Has been reviewed. No new labs. ASSESSMENT AND PLAN: 1. Status post left knee replacement. The patient is currently stable. Continue PT, OT. Continue pain management. Continue deep venous thrombosis prophylaxis with aspirin. 2. Anemia. Continue to monitor hemoglobin and hematocrit levels. 3. Transaminitis. The etiology is unclear, currently improving. Continue to monitor. 4. Debility. Continue PT, OT. 5. Gastrointestinal and deep venous thrombosis prophylaxis. Continue proton pump inhibitor and asp irin. Dictated By: SUSAN RASMUSSEN/ALESSANDRO Conf#: [id number] DID#: [id number]
--- NOTE | 2016-11-26 11:54 | CONS ---
Date/Time of Note Date/Time of Note DATE: 11/26/16 TIME: 11:53 Consult Date/Type/Reason Admit Date/Time Nov 22, 2016 at 10:08 Initial Consult Date Subjective Pain under control Objective Vital Signs Date Time Temp Pulse Resp B/P Pulse Ox O2 Delivery O2 Flow Rate FiO2 11/26/16 07:30 98.3 84 18 121/64 95 11/24/16 20:00 Room Air Intake and Output 11/25/16 11/25/16 11/26/16 14:59 22:59 06:59 Intake Total 2000 ml 650 ml Balance 2000 ml 650 ml INTERDISCIPLINARY TEAM CONFERENCE BOWEL- Cont BLADDER-Cont SKIN- intact OT- DRESSING-sba/min BATHING-sba/min TOILETING-min PT- BED MOBILITY-min TRANSFERS-min AMBULATION-min 150 feet A/P- Interdisciplinary team conference held today. Please see interdisciplinary sheet. Working toward d.cKevin on 11/30 with post discharge follow up of physical therapy, occupational therapy. Results/Medications Result Diagram: 11/25/16 0710 11/25/16 0710 Medications Current Medications Acetaminophen (Tylenol Tab) 650 mg Q4H PRN PO MILD PAIN (1-5),FEVER>101; Start 11/22/16 at 11:00 Aspirin (Aspirin) 325 mg BID PO Last administered on 11/26/16 08:38; Admin Dose 325 MG; Start 11/22/16 at 11:00 Bisacodyl (Dulcolax Supp) 10 mg HS PRN [place] CONSTIPATION; Start 11/22/16 at 11:00 Celecoxib (Celebrex) 200 mg BID PO Last administered on 11/26/16 08:39; Admin Dose 200 MG; Start 11/22/16 at 11:00 Diphenhydramine HCl (Benadryl) 25 mg Q6H PRN PO ITCHINESS; Start 11/22/16 at 11: 00 Fluticasone Propionate (Flonase 0.05% Nasal) 1 SPRAY to each nostril BID NASAL Last administered on 11/26/16 08:38; Admin Dose 1 SPRAY; Start 11/22/16 at 11:30 Magnesium Hydroxide (Milk Of Mag) 30 ml HS PRN PO CONSTIPATION; Start 11/22/16 at 21:00 Ondansetron HCl (Zofran Inj) 4 mg Q4H PRN IV NAUSEA AND/OR VOMITING; Start 11/22 at 11:00 Zolpidem Tartrate (Ambien) 5 mg HS PRN PO SLEEP Last administered on 11/25/16 22:28; Admin Dose 5 MG; Start 11/22/16 at 21:00 Hydromorphone HCl (Dilaudid) 1 mg Q3H PRN IV BREAKTHROUGH PAIN Last administered on 11/25/16 18:38; Admin Dose 1 MG; Start 11/22/16 at 12:00 Hydromorphone HCl (Dilaudid) 4 mg Q6H PRN PO PAIN Last administered on 07:45; Admin Dose 4 MG; Start 11/23/16 at 11:00 Mirtazapine (Remeron) 15 mg HS GTB Last administered on 11/25/16 20:31; Admin Dose 15 MG; Start 11/23/16 at 21:00 Pantoprazole (Protonix Tab) 40 mg DAILY@06 PO Last administered on 11/25/16 14: 50; Admin Dose 40 MG; Start 11/26/16 at 06:00 Assessment/Plan Additional Assessment/Plan INTERDISCIPLINARY TEAM CONFERENCE BOWEL- Cont BLADDER-Cont SKIN- intact OT- DRESSING BATHING TOILETING PT- BED MOBILITY TRANSFERS AMBULATION W.C. MOBILITY SPEECH- COGNITION DYPHAGIA A/P- Interdisciplinary team conference held today. Please see interdisciplinary sheet. Working toward d.c. on 11/30 with post discharge follow up of physical therapy, occupational therapy. CHLOE MONTELONGO MD Nov 26, 2016 11:54
[2016-11-26 20:09] VITALS: BP 134/64; RESP 18
[2016-11-26] MEDS: MIRTAZAPINE 15 MG TAB GTB SCH (20:49)
[2016-11-26] MEDS: ZOLPIDEM 5 MG TAB PO PRN (22:50)
[2016-11-27] MEDS: HYDROmorphONE 1 MG/ML SYG IV PRN ×3 (01:34→15:02)
[2016-11-27] MEDS: PANTOPRAZOLE (EC) 40 MG TAB PO SCH (06:27)
[2016-11-27] MEDS: HYDROmorphONE 4 MG TAB PO PRN ×2 (07:25→20:51)
[2016-11-27 07:33] VITALS: BP 100/52; RESP 18
[2016-11-27] MEDS: ASPIRIN 325 MG TAB PO SCH ×2 (08:28→20:51)
[2016-11-27] MEDS: CELECOXIB 200 MG CAP PO SCH ×2 (08:28→20:51)
[2016-11-27] MEDS: FLUTICASONE 0.05% 16 GM NAS SPRAY NASAL SCH ×2 (09:37→20:51)
--- NOTE | 2016-11-27 11:02 | PN ---
DATE: 11/27/2016 SUBJECTIVE: The patient is stable, no acute events overnight. No fevers, chills, nausea, vomiting. OBJECTIVE: VITAL SIGNS: Blood pressure is 152, respiration 18, pulse 79, temperature 98.3. HEENT: Head is normocephalic. NECK: Supple. HEART: Regular rate. LUNGS: Show diminished breath sounds at the base. ABDOMEN: Soft, nontender to palpation. No rebound or guarding. EXTREMITIES: Negative for clubbing, cyanosis, no edema. DERMATOLOGIC: No rashes. MUSCULOSKELETAL: The patient has dressing over left knee. NEUROLOGIC: No change in exam. MEDICATIONS: The patient's medications have been reviewed. LABORATORY DATA: Has been reviewed. ASSESSMENT AND PLAN: 1. Status post left knee replacement. The patient is currently stable. Continue PT, OT. Continue pain management. Continue DVT prophylaxis with aspirin. 2. Anemia. Continue to monitor hemoglobin and hematocrit levels. 3. Transaminitis, improving. Continue to monitor. 4. Debility. Continue PT, OT. 5. GI and Deep vein thrombosis prophylaxis. Continue PPI and aspirin. Dictated By: SUSAN RASMUSSEN/ALESSANDRO Conf#: [id number] DID#: [id number]
--- NOTE | 2016-11-27 12:46 | CONS ---
Date/Time of Note Date/Time of Note DATE: 11/27/16 TIME: 12:46 Consult Date/Type/Reason Admit Date/Time Nov 22, 2016 at 10:08 Subjective Doing well with rehab program Objective pulm-cta abd-soft cga transfers and ambulation Vital Signs Date Time Temp Pulse Resp B/P Pulse Ox O2 Delivery O2 Flow Rate FiO2 11/27/16 07:33 98.3 79 18 100/52 97 11/24/16 20:00 Room Air Intake and Output 11/26/16 11/26/16 11/27/16 14:59 22:59 06:59 Intake Total 1330 ml 420 ml Balance 1330 ml 420 ml Results/Medications Result Diagram: 11/25/16 0710 11/25/16 0710 Medications Current Medications Acetaminophen (Tylenol Tab) 650 mg Q4H PRN PO MILD PAIN (1-5),FEVER>101; Start 11/22/16 at 11:00 Aspirin (Aspirin) 325 mg BID PO Last administered on 11/27/16 08:28; Admin Dose 325 MG; Start 11/22/16 at 11:00 Bisacodyl (Dulcolax Supp) 10 mg HS PRN [place] CONSTIPATION; Start 11/22/16 at 11:00 Celecoxib (Celebrex) 200 mg BID PO Last administered on 11/27/16 08:28; Admin Dose 200 MG; Start 11/22/16 at 11:00 Diphenhydramine HCl (Benadryl) 25 mg Q6H PRN PO ITCHINESS; Start 11/22/16 at 11: 00 Fluticasone Propionate (Flonase 0.05% Nasal) 1 SPRAY to each nostril BID NASAL Last administered on 11/27/16 09:37; Admin Dose 2 SPRAY; Start 11/22/16 at 11:30 Magnesium Hydroxide (Milk Of Mag) 30 ml HS PRN PO CONSTIPATION; Start 11/22/16 at 21:00 Ondansetron HCl (Zofran Inj) 4 mg Q4H PRN IV NAUSEA AND/OR VOMITING; Start 11/22 at 11:00 Zolpidem Tartrate (Ambien) 5 mg HS PRN PO SLEEP Last administered on 11/26/16 22:50; Admin Dose 5 MG; Start 11/22/16 at 21:00 Hydromorphone HCl (Dilaudid) 1 mg Q3H PRN IV BREAKTHROUGH PAIN Last administered on 11/27/16 10:50; Admin Dose 1 MG; Start 11/22/16 at 12:00 Hydromorphone HCl (Dilaudid) 4 mg Q6H PRN PO PAIN Last administered on 07:25; Admin Dose 4 MG; Start 11/23/16 at 11:00 Mirtazapine (Remeron) 15 mg HS GTB Last administered on 11/26/16 20:49; Admin Dose 15 MG; Start 11/23/16 at 21:00 Pantoprazole (Protonix Tab) 40 mg DAILY@06 PO Last administered on 11/27/16 06 :27; Admin Dose 40 MG; Start 11/26/16 at 06:00 Assessment/Plan Additional Assessment/Plan rehab- Left TKR Continue rehab activities GERD pain-improved CHLOE MONTELONGO MD Nov 27, 2016 12:46
[2016-11-27 20:27] VITALS: BP 133/77; RESP 18
[2016-11-27] MEDS: MIRTAZAPINE 15 MG TAB GTB SCH (20:51)
[2016-11-27] MEDS: ZOLPIDEM 5 MG TAB PO PRN (20:57)
[2016-11-28] MEDS: HYDROmorphONE 1 MG/ML SYG IV PRN ×2 (02:19→17:44)
[2016-11-28] MEDS: PANTOPRAZOLE (EC) 40 MG TAB PO SCH (06:01)
[2016-11-28 08:00] VITALS: BP 119/66; RESP 18
[2016-11-28] MEDS: FLUTICASONE 0.05% 16 GM NAS SPRAY NASAL SCH ×2 (08:24→20:31)
[2016-11-28] MEDS: CELECOXIB 200 MG CAP PO SCH ×2 (08:24→20:31)
[2016-11-28] MEDS: ASPIRIN 325 MG TAB PO SCH ×2 (08:24→20:31)
[2016-11-28] MEDS: HYDROmorphONE 4 MG TAB PO PRN ×3 (08:24→21:51)
--- NOTE | 2016-11-28 10:27 | PN ---
DATE: 11/28/2016 SUBJECTIVE: The patient is stable, no acute events overnight. No fevers, chills, nausea, vomiting. OBJECTIVE: VITAL SIGNS: Blood pressure 119/66, respiration 18, pulse 81, temperature 98.3. HEENT: Head is normocephalic. NECK: Supple. HEART: Regular rate. LUNGS: Show diminished breath sounds at base. ABDOMEN: Soft, nontender to palpation without rebound or guarding. EXTREMITIES: Negative for clubbing, cyanosis, no edema in the right leg. Left knee has dressing cl echo, dry, and intact. NEUROLOGIC: No change in exam. MEDICATIONS: Reviewed. LABORATORY DATA: Have been reviewed. ASSESSMENT AND PLAN: 1. Status post total left knee replacement. The patient is currently stable. Continue PT, OT. Co ntinue pain management. 2. Anemia. Hemoglobin levels have been stable. Continue to monitor. 3. Transaminitis, resolved. 4. Gastrointestinal and deep venous thrombosis prophylaxis. Continue proton pump inhibitor, aspiri n. 5. General debility. Continue PT, OT. Dictated By: SUSAN RASMUSSEN/ALESSANDRO Conf#: [id number] DID#: [id number]
--- NOTE | 2016-11-28 11:54 | CONS ---
Date/Time of Note Date/Time of Note DATE: 11/28/16 TIME: 11:54 Consult Date/Type/Reason Admit Date/Time Nov 22, 2016 at 10:08 Subjective No new complaints Objective pulm-cta abd-soft cga ambulation Vital Signs Date Time Temp Pulse Resp B/P Pulse Ox O2 Delivery O2 Flow Rate FiO2 11/28/16 08:00 98.3 81 18 119/66 97 11/24/16 20:00 Room Air Intake and Output 11/27/16 11/27/16 11/28/16 15:00 23:00 07:00 Intake Total 1200 ml 1080 ml 650 ml Balance 1200 ml 1080 ml 650 ml Results/Medications Result Diagram: 11/25/16 0710 11/25/16 0710 Medications Current Medications Acetaminophen (Tylenol Tab) 650 mg Q4H PRN PO MILD PAIN (1-5),FEVER>101; Start 11/22/16 at 11:00 Aspirin (Aspirin) 325 mg BID PO Last administered on 11/28/16 08:24; Admin Dose 325 MG; Start 11/22/16 at 11:00 Bisacodyl (Dulcolax Supp) 10 mg HS PRN [place] CONSTIPATION; Start 11/22/16 at 11:00 Celecoxib (Celebrex) 200 mg BID PO Last administered on 11/28/16 08:24; Admin Dose 200 MG; Start 11/22/16 at 11:00 Diphenhydramine HCl (Benadryl) 25 mg Q6H PRN PO ITCHINESS; Start 11/22/16 at 11: 00 Fluticasone Propionate (Flonase 0.05% Nasal) 1 SPRAY to each nostril BID NASAL Last administered on 11/28/16 08:24; Admin Dose 2 SPRAY; Start 11/22/16 at 11:30 Magnesium Hydroxide (Milk Of Mag) 30 ml HS PRN PO CONSTIPATION; Start 11/22/16 at 21:00 Ondansetron HCl (Zofran Inj) 4 mg Q4H PRN IV NAUSEA AND/OR VOMITING; Start 11/22 at 11:00 Zolpidem Tartrate (Ambien) 5 mg HS PRN PO SLEEP Last administered on 11/27/16 20:57; Admin Dose 5 MG; Start 11/22/16 at 21:00 Hydromorphone HCl (Dilaudid) 1 mg Q3H PRN IV BREAKTHROUGH PAIN Last administered on 11/28/16 02:19; Admin Dose 1 MG; Start 11/22/16 at 12:00 Hydromorphone HCl (Dilaudid) 4 mg Q6H PRN PO PAIN Last administered on 08:24; Admin Dose 4 MG; Start 11/23/16 at 11:00 Mirtazapine (Remeron) 15 mg HS GTB Last administered on 11/27/16 20:51; Admin Dose 15 MG; Start 11/23/16 at 21:00 Pantoprazole (Protonix Tab) 40 mg DAILY@06 PO Last administered on 11/28/16 06 :01; Admin Dose 40 MG; Start 11/26/16 at 06:00 Assessment/Plan Additional Assessment/Plan rehab- Left TKR Continue rehab program GERD pain-improved CHLOE MONTELONGO MD Nov 28, 2016 11:54
[2016-11-28] MEDS: MIRTAZAPINE 15 MG TAB GTB SCH (20:30)
[2016-11-28] MEDS: ZOLPIDEM 5 MG TAB PO PRN (21:51)
[2016-11-29] MEDS: PANTOPRAZOLE (EC) 40 MG TAB PO SCH (06:38)
[2016-11-29] MEDS: HYDROmorphONE 4 MG TAB PO PRN ×3 (07:13→22:59)
[2016-11-29 07:30] VITALS: BP 97/52; RESP 18
[2016-11-29] MEDS: HYDROmorphONE 1 MG/ML SYG IV PRN ×2 (08:28→11:15)
[2016-11-29] MEDS: FLUTICASONE 0.05% 16 GM NAS SPRAY NASAL SCH ×2 (08:31→21:01)
[2016-11-29] MEDS: CELECOXIB 200 MG CAP PO SCH ×2 (08:32→21:02)
[2016-11-29] MEDS: ASPIRIN 325 MG TAB PO SCH ×2 (08:32→21:01)
[2016-11-29 09:30] VITALS: BP 119/78; PULSE 88
--- NOTE | 2016-11-29 11:17 | PN ---
DATE: 11/29/2016 SUBJECTIVE: The patient is stable, no acute events overnight. No fevers, chills, nausea or vomitin g. No shortness of breath. OBJECTIVE: VITAL SIGNS: Blood pressure 97/52, respiration 18, pulse 83, temperature 98.4. HEENT: Head is normocephalic. NECK: Supple. HEART: Regular rate. LUNGS: Show diminished breath sounds at base. ABDOMEN: Soft, nontender to palpation without rebound or guarding. EXTREMITIES: Negative for clubbing, cyanosis, no edema. DERMATOLOGIC: No rashes. MUSCULOSKELETAL: No joint effusions, noted dressing on the left knee. NEUROLOGIC: No change in exam. MEDICATIONS: The patient's medications have been reviewed. LABORATORY DATA: Have been reviewed. No new labs. ASSESSMENT AND PLAN: 1. Status post total left knee replacement. The patient is clinically stable. Continue PT, OT. 2. Anemia. Continue to monitor hemoglobin and hematocrit levels. 3. Transaminitis, resolved. 4. General debility. Continue PT, OT. 5. Gastrointestinal and deep venous thrombosis prophylaxis. Continue PPI, aspirin. Dictated By: SUSAN RASMUSSEN/ALESSANDRO Conf#: [id number] DID#: [id number]
--- NOTE | 2016-11-29 12:30 | CONS ---
Date/Time of Note Date/Time of Note DATE: 11/29/16 TIME: 12:28 Consult Date/Type/Reason Admit Date/Time Nov 22, 2016 at 10:08 Subjective Patient in good spirits. happy after shower Objective pulm-cta abd-soft cga assist ambulation Vital Signs Date Time Temp Pulse Resp B/P Pulse Ox O2 Delivery O2 Flow Rate FiO2 11/29/16 07:30 98.4 83 18 97/52 98 Intake and Output 11/28/16 11/28/16 11/29/16 15:00 23:00 07:00 Intake Total 1200 ml 1320 ml 700 ml Balance 1200 ml 1320 ml 700 ml Results/Medications Result Diagram: 11/25/1610 11/25/16 0710 Medications Current Medications Acetaminophen (Tylenol Tab) 650 mg Q4H PRN PO MILD PAIN (1-5),FEVER>101; Start 11/22/16 at 11:00 Aspirin (Aspirin) 325 mg BID PO Last administered on 11/29/16 08:32; Admin Dose 325 MG; Start 11/22/16 at 11:00 Bisacodyl (Dulcolax Supp) 10 mg HS PRN [place] CONSTIPATION; Start 11/22/16 at 11:00 Celecoxib (Celebrex) 200 mg BID PO Last administered on 11/29/16 08:32; Admin Dose 200 MG; Start 11/22/16 at 11:00 Diphenhydramine HCl (Benadryl) 25 mg Q6H PRN PO ITCHINESS; Start 11/22/16 at 11: 00 Fluticasone Propionate (Flonase 0.05% Nasal) 1 SPRAY to each nostril BID NASAL Last administered on 11/29/16 08:31; Admin Dose 1 SPRAY; Start 11/22/16 at 11:30 Magnesium Hydroxide (Milk Of Mag) 30 ml HS PRN PO CONSTIPATION; Start 11/22/16 at 21:00 Ondansetron HCl (Zofran Inj) 4 mg Q4H PRN IV NAUSEA AND/OR VOMITING; Start 11/22 at 11:00 Zolpidem Tartrate (Ambien) 5 mg HS PRN PO SLEEP Last administered on 11/28/16 21:51; Admin Dose 5 MG; Start 11/22/16 at 21:00 Hydromorphone HCl (Dilaudid) 1 mg Q3H PRN IV BREAKTHROUGH PAIN Last administered on 11/29/16 11:15; Admin Dose 1 MG; Start 11/22/16 at 12:00 Hydromorphone HCl (Dilaudid) 4 mg Q6H PRN PO PAIN Last administered on 07:13; Admin Dose 4 MG; Start 11/23/16 at 11:00 Mirtazapine (Remeron) 15 mg HS GTB Last administered on 11/28/16 20:30; Admin Dose 15 MG; Start 11/23/16 at 21:00 Pantoprazole (Protonix Tab) 40 mg DAILY@06 PO Last administered on 11/29/16 06 :38; Admin Dose 40 MG; Start 11/26/16 at 06:00 Assessment/Plan Additional Assessment/Plan rehab- Left TKR Progressing well with rehab program GERD pain-improved CHLOE MONTELONGO MD Nov 29, 2016 12:30
[2016-11-29] MEDS ORDERED: PANTOPRAZOLE (EC) 40 MG TAB PO ONE (18:30)
[2016-11-29 19:33] VITALS: BP 125/58; RESP 18
[2016-11-29] MEDS: MIRTAZAPINE 15 MG TAB GTB SCH (21:02)
[2016-11-29] MEDS: ZOLPIDEM 5 MG TAB PO PRN (22:59)
[2016-11-30] MEDS: HYDROmorphONE 4 MG TAB PO PRN ×2 (06:28→14:49)
[2016-11-30] MEDS: PANTOPRAZOLE (EC) 40 MG TAB PO SCH (06:30)
[2016-11-30 07:46] VITALS: BP 121/70; RESP 18
[2016-11-30] MEDS: CELECOXIB 200 MG CAP PO SCH (08:03)
[2016-11-30] MEDS: ASPIRIN 325 MG TAB PO SCH (08:03)
[2016-11-30] MEDS: HYDROmorphONE 1 MG/ML SYG IV PRN ×5 (08:03→16:31)
--- NOTE | 2016-11-30 11:11 | PN ---
DATE: 11/30/2016 SUBJECTIVE: The patient is stable, no acute events overnight. No fevers, chills, nausea, vomiting. OBJECTIVE: VITAL SIGNS: Blood pressure 121/70, respirations 18, pulse 79, temperature 98.4. HEENT: Head is normocephalic. NECK: Supple. HEART: Regular rate. LUNGS: Show diminished breath sounds at the bases. ABDOMEN: Soft, nontender to palpation. No rebound or guarding. EXTREMITIES: Negative for clubbing, cyanosis. No edema. DERMATOLOGIC: No rashes. MUSCULOSKELETAL: The patient has dressing over the left knee clean, dry, and intact. NEUROLOGIC: No change in exam. MEDICATIONS: The patient's medications have been reviewed. LABORATORY DATA: Has been reviewed. ASSESSMENT AND PLAN: 1. Status post total left knee replacement. The patient is currently stable. Continue PT, OT. 2. Anemia. Hemoglobin level stable. Continue to monitor. 3. General debility. Continue PT, OT. 4. Gastrointestinal and deep venous thrombosis prophylaxis. Continue proton pump inhibitor and asp irin. Dictated By: SUSAN RASMUSSEN/ALESSANDRO Conf#: [id number] DID#: [id number]
[2016-11-30] MEDS: FLUTICASONE 0.05% 16 GM NAS SPRAY NASAL SCH (13:50)
== END 2016-11-30 17:30 | disposition home health service (06) | DRG 561 ==
LOC: VRC 10:08
PROVIDERS: ADMIT Physical Medicine & Rehabilitation; ATTEND Internal Medicine Nephrology
PROC: F08Z0ZZ Bathing/Showering Techniques Treatment (ICD-10-PCS; principal; 2016-11-22)
PROC: F08Z1ZZ Dressing Techniques Treatment (ICD-10-PCS; 2016-11-22)
PROC: F08Z2ZZ Grooming/Personal Hygiene Treatment (ICD-10-PCS; 2016-11-22)
PROC: F07Z5ZZ Bed Mobility Treatment (ICD-10-PCS; 2016-11-22)
PROC: F07Z8ZZ Transfer Training Treatment (ICD-10-PCS; 2016-11-22)
PROC: F07Z9ZZ Gait Training/Functional Ambulation Treatment (ICD-10-PCS; 2016-11-22)
PROC: F07Z4ZZ Wheelchair Mobility Treatment (ICD-10-PCS; 2016-11-22)
DX: Z47.1 Aftercare following joint replacement surgery (principal); E66.9 Obesity, unspecified; Z74.09 Other reduced mobility; Z68.38 Body mass index [BMI] 38.0-38.9, adult; G89.18 Other acute postprocedural pain; D64.9 Anemia, unspecified; M25.572 Pain in left ankle and joints of left foot; K21.9 Gastro-esophageal reflux disease without esophagitis; R94.5 Abnormal results of liver function studies; R74.0 Nonspecific elevation of levels of transaminase and lactic acid dehydrogenase [LDH]
CPT/HCPCS: 80048; 80053; 80076; 81001; 81003; 83540; 83735; 84100; 85025; 87081; 87086; 97110; 97116; 97150; 97162; 97166; 97530; 97535; J1170; J1885